=== PATIENT | female | born 1970 | race Two or more races ===

== ENCOUNTER → 2016-09-06 | Outpatient (CLI) | payer OTHER ==
[~2016-09-06] MED LIST: PERCOCET5/325 PO; PHENERGAN PO; ZOFRAN PO
--- NOTE | ~2016-09-06 | NM21 ---
[facility] A Service of [facility] RADIOLOGY TEXT RESULTS PATIENT: ASHLEY SANDERS LOCATION: [facility] : [birth year] UNIT #: [id number] AGE: [address]: KERRI GUZMÁN MD SEX: F ORDER DR: [id number] [facility] [address] [place], [place] [address] [id number] O MR#: [id number] Acc #: [id number] NAME: ASHLEY SANDERS : 1970 SEX: F STUDY DATE/TIME: 09/06/2016 11:10 UNIT: [facility] ROOM: STUDY DESCRIPTION: NM Hepatobiliary W GB Attending Physician: Kerri Guzmán M.D. Referring Physician: Kerri Guzmán M.D. Ordering Physician: Kerri Guzmán M.D. Primary Care Physician: Kerri Guzmán M.D. MEDICAL IMAGING REPORT This report is preliminary unless electronic signature is present EXAM Hepatobiliary scan 09/06/2016 INDICATIONS Right upper quadrant pain that started about 3 years ago, usually after a fatty meal. Patient also reports weight loss, nausea vomiting and gastritis. Bloating. Symptoms worsened 3 months ago. FINDINGS Imaging was obtained of the abdomen for 60 minutes after the IV administration of 5.5 mCi of technetium 99m - Choletec. Comparison made with gallbladder ultrasound from the same day. There is prompt uptake by the liver. Gallbladder activity is seen within 15 minutes. Small bowel activity is seen within 45 minutes. There is no evidence of acute cholecystitis or biliary obstruction. IMPRESSION Normal hepatobiliary scan without Kinevac. Dictated by... Karl Jerez Jr., M.D. THIS IS AN ELECTRONICALLY VERIFIED REPORT Karl Jerez Jr., M.D. at 09/07/2016 7:35 PM GINI/juli TD: 09/06/2016 22:29 JOB #: [id number] MEDICAL IMAGING REPORT Page 1 of 1 COPY
--- NOTE | ~2016-09-06 | US6 ---
[facility] A Service of [facility] RADIOLOGY TEXT RESULTS PATIENT: ASHLEY SANDERS LOCATION: [facility] : [birth year] UNIT #: [id number] AGE: [address]: KERRI GUZMÁN MD SEX: F ORDER DR: [id number] [place], [place] [address] [id number] O MR#: [id number] Acc #: [id number] NAME: ASHLEY SANDERS : 1970 SEX: F STUDY DATE/TIME: 09/06/2016 10:25 UNIT: [facility] ROOM: STUDY DESCRIPTION: US Abdominal Limited Attending Physician: Kerri Guzmán M.D. Referring Physician: Kerri Guzmán M.D. Ordering Physician: Kerri Guzmán M.D. Primary Care Physician: Kerri Guzmán M.D. MEDICAL IMAGING REPORT This report is preliminary unless electronic signature is present EXAM Limited abdominal ultrasound. COMPARISON Nuclear medicine hepatobiliary scan as well as CT abdomen and pelvis dated November 11, 2015. INDICATIONS 46-year-old female with right upper quadrant abdominal pain for years, worsening over last 3 months. Patient also reports nausea and emesis as well as weight loss in this time. FINDINGS Visualized portions of the pancreas are unremarkable. Liver contour is smooth. Portal architecture appears preserved. There is normal flow direction and waveform in the main portal vein. The liver appears echogenic relative to the right renal cortex suggesting steatosis. Normal hepatic length of 14.6 cm. Right kidney is normal. There is no pericholecystic fluid. Normal caliber of the common bile duct at 3 mm. No gallbladder wall thickening. No shadowing cholelithiasis. IMPRESSION 1. Findings suggestive of hepatic steatosis. No evidence of cirrhosis or hepatomegaly. 2. Normal biliary caliber. Normal sonographic evaluation of the gallbladder. Dictated by... Jewel Crowell M.D. [facility] A Service of [facility] RADIOLOGY TEXT RESULTS PATIENT: ASHLEY SANDERS LOCATION: [facility] : [birth year] UNIT #: [id number] AGE: [address]: KERRI GUZMÁN MD SEX: F ORDER DR: THIS IS AN ELECTRONICALLY VERIFIED REPORT Jewel Crowell M.D. at 09/11/2016 11:57 AM Alice TD: 09/07/2016 00:28 JOB #: [id number] MEDICAL IMAGING REPORT Page 1 of 1 COPY
== END | disposition home or self-care (01) ==
LOC: CGUS 09:51
DX: R10.11 Right upper quadrant pain (principal)
CPT/HCPCS: 76705; 78226; A9537

== ENCOUNTER → 2016-09-21 | Outpatient (CLI) | payer OTHER ==
--- NOTE | ~2016-09-21 | US128 ---
[id number] [facility]. [facility] [address] [place], [place] [address] [id number] O MR#: [id number] Acc #: [id number] NAME: ASHLEY SANDERS : 1970 SEX: F STUDY DATE/TIME: 09/21/2016 9:25 UNIT: [facility] ROOM: STUDY DESCRIPTION: Thyroid Attending Physician: Kerri Guzmán M.D. Referring Physician: Kerri Guzmán M.D. Ordering Physician: Kerri Guzmán M.D. Primary Care Physician: Kerri Guzmán M.D. MEDICAL IMAGING REPORT This report is preliminary unless electronic signature is present EXAM Thyroid ultrasound, 09/21/2016 HISTORY Enlarged thyroid on physical examination 09/11/2016, thyroid goiter, nontoxic goiter unspecified. FINDINGS The right thyroid lobe measured 5.1 cm x 1.4 cm x 2.3 cm while the left lobe measured 4.7 cm x 1.2 cm x 1.5 cm. The isthmus measured 2 mm in the AP direction. There is a 3 mm nodule in the upper pole of the right thyroid lobe, and there is a 5 mm nodule in the lower pole right thyroid lobe. In the lower pole of the left lobe, there is a 6 mm nodule. There are no masses extrinsic to the thyroid. Normal blood flow is seen throughout both thyroid lobes. IMPRESSION Subcentimeter bilateral thyroid nodules as detailed above. Otherwise negative thyroid ultrasound. Dictated by... Franklin Bellamy M.D. THIS IS AN ELECTRONICALLY VERIFIED REPORT Franklin Bellamy M.D. at 09/21/2016 5:55 PM JIMI/penny TD: 09/21/2016 13:13 JOB #: [id number] MEDICAL IMAGING REPORT Page 1 of 1 COPY
== END | disposition home or self-care (01) ==
LOC: CWCC 09:14
DX: E04.9 Nontoxic goiter, unspecified (principal); E04.2 Nontoxic multinodular goiter
CPT/HCPCS: 76536